=== PATIENT | female | born 1945 | race Caucasian/White ===

== ENCOUNTER → 2016-09-11 | Outpatient (CLI) | payer OTHER ==
--- NOTE | ~2016-09-11 | MY11 ---
[facility] A Service of [facility] RADIOLOGY TEXT RESULTS PATIENT: [facility]EL[facility]ARRAGAN [id number] 43 UNIT #: [id number] AGE: [address]: IMANI GIORDANO APRN SEX: F ORDER DR: [id number] [facility] [address] [place], [place] [address] [id number] O MR#: [id number] Acc #: [id number] NAME: ABELARDO BARRAGAN : 1945 SEX: F STUDY DATE/TIME: 09/11/2016 10:44 UNIT: [facility] ROOM: STUDY DESCRIPTION: MY Mammogram Screening Dig Mark Attending Physician: Imani Giordano M.D. Ordering Physician: Imani Giordano M.D. Primary Care Physician: Imani Giordano M.D. MEDICAL IMAGING REPORT This report is preliminary unless electronic signature is present EXAM Bilateral digital screening mammogram with CAD device 09/11/2016 HISTORY Baseline mammogram. FINDINGS Bilateral digital screening mammogram was performed in craniocaudal and mediolateral oblique projections demonstrating both breasts to be predominately fatty replaced. There is no prior mammogram for comparison. There is a 2.8 cm x 1.9 cm circumscribed mass in the upper outer quadrant of the left breast. Recommend spot compression for further evaluation. If the finding persists following spot compression recommend ultrasound for characterization. No suspicious cluster of microcalcifications was seen. The films have been reviewed by an FDA-approved CAD device. IMPRESSION 2.8 cm x 1.9 cm circumscribed mass in the upper outer quadrant of the left breast. Recommend spot compression for further evaluation. If the finding persists following spot compression recommend ultrasound for characterization. Patients over the age of 40 are entered into a reminder system with target due date for the next mammogram. A result letter will also be sent to the patient. BIRADS: 0. Incomplete; Need additional imaging evaluation and/or prior mammograms for comparison. Dictated by... [facility] A Service of [facility] RADIOLOGY TEXT RESULTS PATIENT: ABELARDO BARRAGAN [id number] 43 UNIT #: [id number] AGE: [address]: IMANI GIORDANO APRN SEX: F ORDER DR: Reza Baeza M.D. THIS IS AN ELECTRONICALLY VERIFIED REPORT Reza Baeza M.D. at 09/12/2016 8:28 AM JULIO/bang TD: 09/11/2016 13:05 JOB #: [id number] MEDICAL IMAGING REPORT Page 1 of 1 COPY
== END | disposition home or self-care (01) ==
LOC: CWCC 10:25
DX: Z12.31 Encounter for screening mammogram for malignant neoplasm of breast (principal); N63 Unspecified lump in breast
CPT/HCPCS: G0202

== ENCOUNTER → 2016-10-22 | Outpatient (CLI) | payer OTHER ==
--- NOTE | ~2016-10-22 | MY7 ---
[facility] A Service of [facility] RADIOLOGY TEXT RESULTS PATIENT: ABELARDO BARRAGAN LOCATION: [facility] : 43 UNIT #: [id number] AGE: [address]: IMANI GIORDANO APRN SEX: F ORDER DR: [id number] [facility] [address] [place], [place] [address] [id number] O MR#: [id number] Acc #: [id number] NAME: ABELARDO BARRAGAN : 1945 SEX: F STUDY DATE/TIME: 10/22/2016 10:46 UNIT: [facility] ROOM: STUDY DESCRIPTION: MY Mammogram Dx Dig Lt Attending Physician: Imani Giordano M.D. Ordering Physician: Imani Giordano M.D. Primary Care Physician: Imani Giordano M.D. MEDICAL IMAGING REPORT This report is preliminary unless electronic signature is present EXAM Left breast digital diagnostic mammogram with CAD DATE 10/22/2016 HISTORY Left breast mass on previous screening mammogram for which additional diagnostic imaging was recommended. COMPARISON Bilateral screening mammogram 09/11/2016. FINDINGS True ML view is obtained of the left breast utilizing digital technique and reviewed with an FDA-approved CAD device. Spot compression imaging was performed of the left breast in the CC and MLO views with attention to the lateral hemisphere. Previously described greater than 2 cm nodular density the left breast is again seen. It is near the 3 o'clock axis [id number] third of the left breast. It becomes more conspicuous and persists upon spot compression. No associated architectural distortion or microcalcifications are seen. No additional nodule is identified. Targeted sonographic imaging was performed of the lateral hemisphere left breast. Imaging was performed by the licensed master social worker and separately by myself. At the 3 o'clock axis in the left breast, there is a 2.2 x 1.8 x 0.6 cm heterogeneous predominately hypoechoic solid-appearing lesion. It is wider than tall. There is no associated architectural distortion. There are scattered areas of acoustic shadowing within it, however. The technologist denotes that it is 3 cm from the nipple, but I believe it is more posterior than that upon my examination. I highly suspect that this [facility] A Service of [facility] RADIOLOGY TEXT RESULTS PATIENT: ABELARDO BARRAGAN LOCATION: [facility] : 43 UNIT #: [id number] AGE: [address]: IMANI GIORDANO APRN SEX: F ORDER DR: represents the abnormality on mammogram. IMPRESSION 1. Suspicious abnormality in the left breast. Biopsy recommended. Approximately 2.2 cm heterogeneous mass lesion is seen in the 3 o'clock axis of the left breast mammographically and sonographically. It is indeterminate. Ultrasound-guided core needle biopsy is recommended at this time. It is recommended that the patient refrain from blood thinning agents for 5 days prior to procedure. This procedure can be scheduled by the referring physician's office at the patient's convenience. Findings and recommendations were discussed in great detail with the patient today in the radiology department and she wishes to proceed. Additionally, I have contacted the nurse practitioner's (Imani Giordano) answering service at [facility] prior to the time of this dictation, 10/22/2016 at 1138, with pertinent findings and recommendations. Patient's over the age of 40 are entered into a reminder system with target due date for the next mammogram. BIRADS: 4 Suspicious abnormality; biopsy should be considered. STAT * RESULT Dictated by... Giuliana Pascal M.D. THIS IS AN ELECTRONICALLY VERIFIED REPORT Giuliana Pascal M.D. at 10/22/2016 12:27 PM TANA/sixto TD: 10/22/2016 12:18 JOB #: [id number] MEDICAL IMAGING REPORT Page 1 of 1 COPY
--- NOTE | ~2016-10-22 | US24 ---
[facility] A Service of [facility] RADIOLOGY TEXT RESULTS PATIENT: ABELARDO BARRAGAN LOCATION: [facility] : 43 UNIT #: [id number] AGE: [address]: IMANI GIORDANO APRN SEX: F ORDER DR: [id number] [facility] [address]. [place], [place] [address] [id number] O MR#: [id number] Acc #: [id number] NAME: ABELARDO BARRAGAN : 1945 SEX: F STUDY DATE/TIME: 10/22/2016 11:13 UNIT: [facility] ROOM: STUDY DESCRIPTION: US Breast Unilateral Attending Physician: Imani Giordano M.D. Ordering Physician: Imani Giordano M.D. Primary Care Physician: Imani Giordano M.D. MEDICAL IMAGING REPORT This report is preliminary unless electronic signature is present EXAM Left breast diagnostic ultrasound DATE 10/22/2016 HISTORY Mass lesion on screening mammogram and diagnostic ultrasound for which additional sonographic imaging was necessary. COMPARISON Bilateral screening mammogram 09/11/2016. Left breast digital diagnostic mammogram 10/22/2016 FINDINGS Targeted sonographic imaging was performed of the left breast at the 3 o'clock axis. Please refer to the diagnostic mammogram report from the same date for full description mammographic and sonographic findings and recommendations. IMPRESSION Please refer to the diagnostic mammogram report from this same day for full description mammographic and sonographic findings recommendations. Patient's over the age of 40 are entered into a reminder system with target due date for the next mammogram. A result letter will be sent to the patient. BIRADS: 4 Suspicious abnormality, biopsy should be considered. Dictated by... Giuliana Pascal M.D. [facility] A Service [facility] RADIOLOGY TEXT RESULTS PATIENT: ABELARDO BARRAGAN LOCATION: [facility] : 43 UNIT #: [id number] AGE: [address]: IMANI GIORDANO APRN SEX: F ORDER DR: THIS IS AN ELECTRONICALLY VERIFIED REPORT Giuliana Pascal M.D. at 10/23/2016 7:08 AM [facility]/mely TD: 10/22/2016 14:31 JOB #: [id number] MEDICAL IMAGING REPORT Page 1 of 1 COPY
== END | disposition home or self-care (01) ==
LOC: CMAM 10:27
DX: N63 Unspecified lump in breast (principal)
CPT/HCPCS: 76641; G0206